=== PATIENT | male | born 1970 | race Caucasian/White ===

== ENCOUNTER 2016-11-05 22:42 | Emergency (ER) | payer SELFPAY ==
--- NOTE | 2016-11-06 00:06 | DIAGNOSTIC IMAGING REPORT ---
PROCEDURE: CT HEAD WITHOUT CONTRAST INDICATION: HEADACHE TECHNIQUE: Noncontrast axial images with sagittal and coronal reformations. COMPARISON: None. FINDINGS: Brain and ventricles are normal. No evidence of an acute process or hemorrhage. Mild to moderate chronic mucosal thickening in the ethmoid air cells with 2.5 cm chronic left maxillary sinus retention cyst. and mastoids are normal. IMPRESSION: 1. Mild to moderate chronic mucosal thickening in the ethmoid air cells with 2.5 cm chronic left maxillary sinus retention cyst. 2. Otherwise negative head CT. No evidence of intracranial abnormality. 3. Findings discussed with Dr. Gnea Arredondo at [address] scans at this facility use dose modulation, iterative reconstruction, and/or weight-based dosing when appropriate to reduce radiation dose to as low as reasonably achievable.
--- NOTE | 2016-11-06 01:55 | ED ORDER SUMMARY ---
..... Patient: TRINITY PRASAD OrderSheet [facility] VisitID: [id number] [place] [address] 46y, M Registration Date/Time: 11/05/2016 ORDER SHEET Weight: 149.6 kg (stated) Allergies: No Known Drug Allergy GENERAL ORDERS: CT Head wo Cont Urgent (23:34 11/05/[address]) (Ack 23:38 AMcQuoid ER Tech1) (23:50 RFay) MEDICATION ORDERS: Phenergan IV 25 mg (HIGH ALERT MEDICATION, NOW) (:34 11/05/[address]) (Ack 23:35 JDeElena R.N.) (23:47 HSoule) IV FLUIDS: IV NS : initial bolus 1000 mL (1000 mL/hr), then none - (NOW) (:34 11/05/[address]) (Ack 23:35 JDeElena R.N.) (23:47 HSoule) Toradol IV 30 mg (NOW) (:34 11/05/[address]) (Ack 23:35 JDeElena R.N.) (23:47 HSoule) Dilaudid IV 1 mg (HIGH ALERT MEDICATION, NOW) (00:20 11/06/[address]) (Ack 0:25 HSoule) (0:32 HSoule) Dilaudid IV 1 mg (HIGH ALERT MEDICATION, NOW) (01:18 11/06/[address]) (1:19 HSoule) ORDER SHEET NOTES: [Electronically signed by Joceline Copeland (02:11/06/2016)] [Electronically signed by Gena Arredondo MD (18:39 11/07/2016)] [Electronically locked/signed by Joceline Copeland (11/06/2016)]
--- NOTE | 2016-11-06 01:55 | ED NURSING NOTES ---
Clinical Report - Nurses [facility] [place] [address] 11/05/2016 22:41 Patient: TRINITY PRASAD TRIAGE Triage time 22:47. Acuity: LEVEL 3. Chief Complaint: HEADACHE and (Onset two hours ago, woke him up from sleep, describes as a "migraine." Ran out of BP med about 2-3 months ago.). Alert. SEPSIS SCREEN: Sepsis Screen: negative. Negative (no infection suspected/documented). --23:00 Franky Castellon R.N. 22:47 11/05/16. BP: 188/108 (large adult cuff) taken on the left arm, via an automated monitor, while sitting. HR: 89 (normal rate). RR: 18 (regular, unlabored and normal). O2 saturation: 92% on room air. Temp: 98.4 F (oral). Pain level now: 07/31. --23:00 Franky Castellon R.N. Weight: 149.6 kg stated. Height/Length: 75 inches Per Patient. BMI: 41.2. --22:48 Franky Castellon R.N. Medications None. --22:49 Franky Castellon R.N. HCTZ 40mg, daily. --22:49 Franky Castellon R.N. Lisinopril Oral 40 mg, daily. --22:49 Franky Castellon R.N. Medication/allergy information source: the patient. --23:00 Franky Castellon R.N. Allergies No Known Drug Allergy. --22:49 Franky Castellon R.N. History Arrived by private vehicle. Historian: patient. Accompanied by son. Primary physician (None). This started just prior to arrival. Reports experiencing sweating episodes. He has had dizziness. He has had a global headache (described as "someone putting head in vice."). The headache has been associated with nausea and photophobia. No numbness or weakness. No chills, fever, chest pain or difficulty breathing. He has not had fatigue. Denies muscle aches. Treatment EDUCATION ASSOCIATE: Took ibuprofen. (2 x 200 mg 2 hours ago, no relief). SOCIAL HX: Never smoker. No alcohol use or drug use. He has not traveled outside the [place] No infectious disease exposure. ABUSE ASSESSMENT: Abuse assessment: The patient was asked "Do you feel safe in your home?" and "Has anyone hurt you or threatened to hurt you?". No report of abuse. SELF HARM ASSESSMENT: A self harm assessment was performed. The patient answered "no" to the question "Do you have thoughts of harming or killing yourself?" and "Have you recently had thoughts about harming or killing others?". FALL RISK ASSESSMENT: Fall risk assessment completed. No fall risk identified. NUTRITIONAL RISK ASSESSMENT: The nutritional risk assessment revealed no deficiencies. FUNCTIONAL ASSESSMENT: Functional assessment: no impairments noted. LEARNING NEEDS ASSESSMENT: The learning needs assessment revealed no barriers. SKIN INTEGRITY ASSESSMENT: Skin integrity risk assessment completed. No skin integrity risk identified. --23:00 Franky Castellon R.N. PROBLEMS: Atypical Chest Pain. DVT - Deep Venous Thrombosis. Pulmonary Embolism. Hematuria. Back Pain. Lung Disease. Chest Pain. Hyperlipidemia. Hypertension. --22:49 Franky Castellon R.N. Gastroesophageal Reflux Disease [RuleOut]. --22:49 Franky Castellon R.N. The following entry was modified by Gena Arredondo MD, 00:28 Reason - duplicate <<STRICKEN ENTRY-- Hypercholesterolemia. --00:28 Gena Arredondo MD --END STRIKE>>. Assessment GENERAL / NEURO / PSYCH: Alert. Oriented X 4. Appears in pain. Patient appears calm and cooperative. ( Guarding face from light.). RESPIRATORY: Respirations not labored. SKIN: Skin is warm and dry. --23:00 Franky Castellon R.N. Interventions ID band on patient. To treatment room. No allergy band on patient. --23:00 Franky Castellon R.N. Report given to the primary nurse. TESSIE Cotton. --23:00 Franky Castellon R.N. NURSING PROGRESS NOTES 23:41 11/05/2016 Site #1 started via IV in the right antecubital space with an 20g angiocath, with aseptic technique and good blood return; one attempt. Blood drawn: rainbow set. Labeled in the presence of the patient and sent to the lab. Saline lock flushed with 10 mL saline. --23:46 Min Joceline 23:42 11/05/2016 Toradol IVP 30 mg given over 1 minute(s) via site #1. Allergies verified and confirmed 5 rights. IV patency established. IV site checked: no pain, redness, or swelling. IV flushed thoroughly pre- and post-medication administration. IVP given by RN. --23:47 Joceline Copeland 23:47 11/05/2016 Started bag #1 1000 mL IV Fluids IV NS (Saline); at 1000 mL/hr over 1 hour(s) via site #1. Allergies verified and confirmed 5 rights. IV patency established. IV site checked: no pain, redness, or swelling. IV flushed thoroughly pre- and post-medication administration. --23:47 Joceline Copeland 23:47 11/05/2016 PHENERGAN (Promethazine HCl) IVP 25 mg given diluted in NS 20mL over 4 minute(s) via site #1. Allergies verified and confirmed 5 rights. IV patency established. IV site checked: no pain, redness, or swelling. IV flushed thoroughly pre- and post-medication administration. IVP given by RN. --23:47 Joceline Copeland 23:47 11/05/16. BP: 145/88. HR: 90. RR: 20. O2 saturation: 93% on room air. Pain level now: 05/31. --23:48 Joceline Copeland Patient transported to [place] by stretcher with tech. --23:48 Joceline Copeland 00:27 11/06/2016 Dilaudid (HYDROmorphone HCl PF) IVP 1 mg given over 1 minute(s) via site #1. Allergies verified, confirmed 5 rights and sedative warning given to the patient. IV patency established. IV site checked: no pain, redness, or swelling. IV flushed thoroughly pre- and post-medication administration. IVP given by RN. --00:32 Joceline Copeland ( Patient given Ice pack and ice chips.). --00:36 Joceline Copeland Reassessment after medication administered. Overall patient status- he states feels the same. --00:43 Joceline Copeland ( Patient states his pain medication has only slightly improved his pain). --00:43 Joceline Copeland 01:19 11/06/2016 Dilaudid (HYDROmorphone HCl PF) IVP 1 mg given over 1 minute(s) via site #1. Allergies verified, confirmed 5 rights and sedative warning given to the patient. IV patency established. IV site checked: no pain, redness, or swelling. IV flushed thoroughly pre- and post-medication administration. IVP given by RN. --01:19 Joceline Copeland 01:11/06/2016 IV Fluids IV NS Discontinued: bag #1 completed. Total amount infused: 1000 mL. IV patency established. IV site checked: no pain, redness, or swelling. IV flushed thoroughly. --01:19 Joceline Copleand. DISPOSITION / DISCHARGE 01:11/06/16. BP: 143/81. HR: 83. RR: 20. O2 saturation: 94% on room air. Pain level now: 10. --01:12 Joceline Copeland 01:12 11/06/2016 Site #1 removed. Catheter intact. Bandaid applied. --01:59 Joceline Copeland 01:20 11/06/16. ( Teaching done with patient regarding follow up for Hypertension management. Patient states he will obtain his medications as soon as possible. Patient and RN discussed headache management.). No learning barriers present. Reviewed diet. ( Patient left prior to receiving paperwork, discharge teaching was performed during last set of vitals.). The patient was discharged by the physician. He was discharged home and accompanied by family. He left the Emergency Department ambulatory and via private vehicle. Family member driving. --01:58 Joceline Copeland. Locked/Released at 11/06/2016 2:24 by Joceline Copeland,
--- NOTE | 2016-11-06 01:55 | ED ORDER SUMMARY ---
..... Patient: TRINITY PRASAD OrderSheet [facility] VisitID: [id number] [place] [address] 46y, M Registration Date/Time: 11/05/2016 ORDER SHEET Weight: 149.6 kg (stated) Allergies: No Known Drug Allergy GENERAL ORDERS: CT Head wo Cont Urgent (23:34 11/05/[address]) (Ack 23:38 AMcQuoid ER Tech1) (23:50 RFay) MEDICATION ORDERS: Phenergan IV 25 mg (HIGH ALERT MEDICATION, NOW) (:34 11/05/[address]) (Ack 23:35 JDeElena R.N.) (23:47 HSoule) IV FLUIDS: IV NS : initial bolus 1000 mL (1000 mL/hr), then none - (NOW) (:34 11/05/[address]) (Ack 23:35 JDeElena R.N.) (23:47 HSoule) Toradol IV 30 mg (NOW) (:34 11/05/[address]) (Ack 23:35 JDeElena R.N.) (23:47 HSoule) Dilaudid IV 1 mg (HIGH ALERT MEDICATION, NOW) (00:20 11/06/[address]) (Ack 0:25 HSoule) (0:32 HSoule) Dilaudid IV 1 mg (HIGH ALERT MEDICATION, NOW) (01:18 11/06/[address]) (1:19 HSoule) ORDER SHEET NOTES: [Electronically signed by Joceline Copeland (02:11/06/2016)] [Electronically signed by Gena Arredondo MD (18:39 11/07/2016)] [Electronically locked/signed by Joceline Copeland (11/06/2016)]
--- NOTE | 2016-11-06 01:55 | ED CLINICAL REPORT ---
Clinical Report - Physicians/Mid Levels [facility] [address] [place] [address] 11/05/2016 22:41 Patient: TRINITY PRASAD Time Seen: 22:49. Arrived- By private vehicle. Historian- patient. HISTORY OF PRESENT ILLNESS Chief Complaint: HEADACHE. Is still present. This started about 2 hours ago. Onset during sleep. It is described as similar to previous headaches and "pain". Located in the region of the right eye and left eye and frontal and occipital region. No neck pain. At its maximum, severity described as moderate. When seen in the E.D., severity described as moderate. Modifying factors: worsened by bright light; relieved by nothing. The patient has had photophobia and nausea. No preceding symptoms, blurred vision, numbness, weakness or vomiting. (Pt states he has a history of this kind of GR before, but usually, it goes away with ibuprofen.). Similar symptoms previously: Occasionally, milder. Recent medical care: Not recently seen/assessed. REVIEW OF SYSTEMS No fever, muscle aches, sinus pressure, ear pain or sore throat. No head injury, chest pain, difficulty breathing, cough or abdominal pain. No diarrhea, pain with urination, skin rash, enlarged lymph nodes or back pain. All systems otherwise negative, except as recorded above. PAST HISTORY Problems: DVT - Deep Venous Thrombosis. Pulmonary Embolism. Lung Disease. Hyperlipidemia. Hypertension. Additional Surgeries: Ankle. Appendectomy. Elbows. Fracture Repair. Knee Surgery. Tonsillectomy. Umbilical Hernia Repair. Medications: Lisinopril Oral 40 mg, daily. HCTZ 40mg, daily. None. Allergies: No Known Drug Allergy. SOCIAL HISTORY Never smoker. No alcohol use or drug use. ADDITIONAL NOTES The nursing notes have been reviewed. PHYSICAL EXAM Vital Signs: 11/05/2016 22:47 BP: 188/108. HR: 89. RR: 18. O2 saturation: 92%. Temp: 98.4 F. Pain level now: 10/10. Have been reviewed. Appearance: Alert. No acute distress. (Pt is sitting in a dark room with his hands over his eyes.). Eyes: Pupils equal, round and reactive to light. Eyes normal inspection. ENT: Nose normal. Neck: Normal inspection. CVS: Normal heart rate and rhythm. Heart sounds normal. Pulses normal. Respiratory: No respiratory distress. Breath sounds normal. Abdomen: Soft and nontender. Obese. Back: Normal inspection. Skin: Skin warm and dry. Normal skin color. No rash. Normal skin turgor. Extremities: Extremities exhibit normal ROM. No lower extremity edema. Neuro: Oriented X 3. Alert. Mood/affect normal. Speech normal. Cranial nerves normal (as tested). No cerebellar findings. No motor deficit. No sensory deficit. LABS, X-RAYS, AND EKG CT Head: No acute changes. No bony abnormalities, no hemorrhage, no intracranial mass, no midline shift and no hydrocephalus. No atrophy. Head CT performed without contrast. The study was independently viewed by me, interpreted by the radiologist and contemporaneously by me and discussed with the radiologist. Prior studies were not available for comparison. Pulse Oximetry: 11/05/2016 22:47 O2 saturation: 92%. (FIO2 - room air). Interpretation: normal. PROGRESS AND PROCEDURES Course of Care: Pt was given a liter of NS, Toradol, Phenergan, and Dilaudid for his discomfort. His blood pressure did decrease throughout his stay in the ED. He was worked up with a CT brain, and this was unremarkable. PT was informed of his CT results by nursing staff, prior to my re-evaluation, and stated that he would like to leave, as his son had to work in a few hours. Nursing staff did try to persuade pt to stay so that I could speak with him (I was with another pt at the time), but pt insisted on leaving at that time. My plan was to discharge the pt home, but to re-emphasize the importance of pt getting control of his BP (need for timely follow-up with PCP). Patient counseled in person regarding the patient's stable condition, test results, diagnosis and need for follow-up. Old medical records ordered. Disposition: Discharged (Pt eloped from the ED, prior to re-evaluation by EDMD, and prior to receiving d/c papers.). Condition: stable and improved. CLINICAL IMPRESSION Acute headache. Uncontrolled hypertension. (Electronically signed by Gena Arredondo MD 11/07/2016 18:39)
--- NOTE | 2016-11-07 18:40 | ED MAR SUMMARY ---
..... Medication Administration Record [facility] [address] [place] [address] Patient: TRINITY PRASAD Visit ID: [id number] 46y, M Weight: 149.6 kg Height/Length: 75 in BMI: 41.2 ALLERGIES: No Known Drug Allergy Given 23:42 11/05/2016 Joceline Copeland, Medication Administered: TORADOL [IVP], Dose: 30 mg IVP over 1 minute(s), Site: #1 right AC. Medication Ordered: Toradol IV 30 mg (NOW). Given 23:47 11/05/2016 Joceline Copeland, Medication Administered: PHENERGAN [IVP] (PROMETHAZINE HCL), Dose: 25 mg IVP over 4 minute(s), In: NS 20 mL, Site: #1 right AC. Medication Ordered: Phenergan IV 25 mg (HIGH ALERT MEDICATION, NOW). Start 23:47 11/05/2016 Joceline Copeland,, Stop 01:11/06/2016 Joceline Copeland, Medication Administered: IV NS (SALINE), Dose: IV Fluids over 1 hour(s), Rate: 1000 mL/hr, Dispensed: 1000 mL bag, Site: #1 right AC. Medication Ordered: IV NS : initial bolus 1000 mL (1000 mL/hr), then none - (NOW). Given 00:27 11/06/2016 Joceline Copeland, Medication Administered: DILAUDID [IVP] (HYDROMORPHONE HCL PF), Dose: 1 mg IVP over 1 minute(s), Site: #1 right AC. Medication Ordered: Dilaudid IV 1 mg (HIGH ALERT MEDICATION, NOW). Given :11/06/2016 Joceline Copeland, Medication Administered: DILAUDID [IVP] (HYDROMORPHONE HCL PF), Dose: 1 mg IVP over 1 minute(s), Site: #1. Medication Ordered: Dilaudid IV 1 mg (HIGH ALERT MEDICATION, NOW).
--- NOTE | 2016-11-07 18:40 | ED DISCHARGE INSTRUCTIONS ---
Patient: TRINITY PRASAD General Instructions [facility] VisitID: [id number] [address] [place] [address] 46y, M Registration Date/Time: 11/05/2016 Acute headache. Uncontrolled hypertension. (Electronically signed by Gena Arredondo MD 11/07/2016 18:39)
--- NOTE | 2016-11-07 18:40 | ED MAR SUMMARY ---
..... Medication Administration Record [facility] [address] [place] [address] Patient: TRINITY PRASAD Visit ID: [id number] 46y, M Weight: 149.6 kg Height/Length: 75 in BMI: 41.2 ALLERGIES: No Known Drug Allergy Given 23:42 11/05/2016 Joceline Copeland, Medication Administered: TORADOL [IVP], Dose: 30 mg IVP over 1 minute(s), Site: #1 right AC. Medication Ordered: Toradol IV 30 mg (NOW). Given 23:47 11/05/2016 Joceline Copeland, Medication Administered: PHENERGAN [IVP] (PROMETHAZINE HCL), Dose: 25 mg IVP over 4 minute(s), In: NS 20 mL, Site: #1 right AC. Medication Ordered: Phenergan IV 25 mg (HIGH ALERT MEDICATION, NOW). Start 23:47 11/05/2016 Joceline Copeland,, Stop 01:11/06/2016 Joceline Copeland, Medication Administered: IV NS (SALINE), Dose: IV Fluids over 1 hour(s), Rate: 1000 mL/hr, Dispensed: 1000 mL bag, Site: #1 right AC. Medication Ordered: IV NS : initial bolus 1000 mL (1000 mL/hr), then none - (NOW). Given 00:27 11/06/2016 Joceline Copeland, Medication Administered: DILAUDID [IVP] (HYDROMORPHONE HCL PF), Dose: 1 mg IVP over 1 minute(s), Site: #1 right AC. Medication Ordered: Dilaudid IV 1 mg (HIGH ALERT MEDICATION, NOW). Given :11/06/2016 Joceline Copeland, Medication Administered: DILAUDID [IVP] (HYDROMORPHONE HCL PF), Dose: 1 mg IVP over 1 minute(s), Site: #1. Medication Ordered: Dilaudid IV 1 mg (HIGH ALERT MEDICATION, NOW).
--- NOTE | 2016-11-07 18:40 | ED MED RECONCILIATION SUMMARY ---
Patient: TRINITY PRASAD Medication Reconciliation Report [facility] VisitID: [id number] [address] [place] [address] 46y, M Registration Date/Time: 11/05/2016 Weight: 149.6 kg Height/Length: 75 in. BMI: 41.2 ALLERGIES: No Known Drug Allergy The patient's Home Medications are listed below: THE FOLLOWING MEDICATIONS NEED TO BE RECONCILED: HCTZ 40mg, daily Lisinopril Oral 40 mg, daily The source(s) of the original Home Medication information: patient The following Medications were given to the patient in the Emergency Department: IV NS IV Fluids bolus 0, then 1000 mL/hr, administered: 11/05/2016 11:47:00 PM Toradol [IVP] IVP 30 mg, administered: 11/05/2016 11:42:00 PM PHENERGAN [IVP] IVP 25 mg diluted in NS 20 mL, administered: 11/05/2016 11:47:00 PM Dilaudid [IVP] IVP 1 mg, administered: 11/06/2016 12:27:00 AM Dilaudid [IVP] IVP 1 mg, administered: 11/06/2016 1:19:00 AM The following Medications were prescribed to the patient: None.
--- NOTE | 2016-11-07 18:40 | ED DISCHARGE INSTRUCTIONS ---
Patient: TRINITY PRASAD General Instructions [facility] VisitID: [id number] [address] [place] [address] 46y, M Registration Date/Time: 11/05/2016 Acute headache. Uncontrolled hypertension. (Electronically signed by Gena Arredondo MD 11/07/2016 18:39)
--- NOTE | 2016-11-07 18:40 | ED MED RECONCILIATION SUMMARY ---
Patient: TRINITY PRASAD Medication Reconciliation Report [facility] VisitID: [id number] [address] [place] [address] 46y, M Registration Date/Time: 11/05/2016 Weight: 149.6 kg Height/Length: 75 in. BMI: 41.2 ALLERGIES: No Known Drug Allergy The patient's Home Medications are listed below: THE FOLLOWING MEDICATIONS NEED TO BE RECONCILED: HCTZ 40mg, daily Lisinopril Oral 40 mg, daily The source(s) of the original Home Medication information: patient The following Medications were given to the patient in the Emergency Department: IV NS IV Fluids bolus 0, then 1000 mL/hr, administered: 11/05/2016 11:47:00 PM Toradol [IVP] IVP 30 mg, administered: 11/05/2016 11:42:00 PM PHENERGAN [IVP] IVP 25 mg diluted in NS 20 mL, administered: 11/05/2016 11:47:00 PM Dilaudid [IVP] IVP 1 mg, administered: 11/06/2016 12:27:00 AM Dilaudid [IVP] IVP 1 mg, administered: 11/06/2016 1:19:00 AM The following Medications were prescribed to the patient: None.
== END 2016-11-06 01:20 | disposition home or self-care (01) ==
LOC: ED SRH 22:42
DX: R51 Headache (principal); I10 Essential (primary) hypertension; E78.5 Hyperlipidemia, unspecified; Z86.711 Personal history of pulmonary embolism; Z86.718 Personal history of other venous thrombosis and embolism

== ENCOUNTER 2017-04-09 18:27 | Emergency (ER) | payer OTHER ==
--- NOTE | 2017-04-09 19:18 | ED NURSING NOTES ---
Clinical Report - Nurses [facility] [place] [address] 04/09/2017 18:27 Patient: TRINITY PRASAD TRIAGE Triage time 18:40. Acuity: LEVEL 3. Chief Complaint: RIGHT LOWER EXTREMITY PAIN and SWELLING. --18:48 Van Herrera R.N. 18:40 04/09/17. BP: 130/87. HR: 91. RR: 16. O2 saturation: 100%. Temp: 98.6 F. Pain level now: 07/31. --18:48 Van Herrera R.N. Weight: 138.3 kg. Height/Length: 73 inches. BMI: 40.2. --18:45 Van Herrera R.N. Medications HCTZ 40mg, daily. --18:44 Van Herrera R.N. Lisinopril Oral 40 mg, daily. None. --18:44 Van Herrera R.N. ASA Oral. --18:46 Van Herrera R.N. Amlodipine Besy-Benazepril HCl Oral. --18:47 Van Herrera R.N. Medication/allergy information source: the patient. --18:48 Van Herrera R.N. Allergies No Known Drug Allergy. --18:44 Van Herrera R.N. History Arrived by private vehicle. Historian: patient. Accompanied by spouse. ( Right calf pain and increasing swelling in the last 2 days, history of DVT on the same leg 6 years ago.). This occurred (2 days ago). Provoking / relieving factors: worsened by movement, standing and walking. He has had swelling and moderate trouble walking. The patient has been limping when trying to walk. PAST MEDICAL HX: Hypertension. Deep vein thrombosis (6 years ago). SURGERY HX: ( right torn meniscus; patellar tendon repair). SOCIAL HX: Former smoker, end date 2006. Occasional alcohol use; consumes beer occasionally. --18:48 Van Herrera R.N. PHYSICAL ASSESSMENT Ambulatory to room. GENERAL / NEURO / PSYCH: Oriented X 4. Alert. Appears in no acute distress. Appears in pain. EXTREMITIES: Limited ROM present. Extremity pulses are within normal limits. Extremities exhibit normal ROM. Neuro-vascular status intact to the extremity. Right leg: tenderness and swelling. Limited weight bearing secondary to pain. Right ankle: tenderness and swelling. Limited ROM secondary to pain (diminished plantar flexion, dorsiflexion, inversion and eversion). SKIN: Skin intact. Skin is warm and dry. --18:49 Van Herrera R.N. NURSING PROGRESS NOTES Cold pack applied. Extremity elevated. Neuro-vascular extremity check. Patient identifiers checked. Call light placed in reach. Bed placed in lowest position. Brakes of bed on. Patient ready for evaluation- chart flagged and WET END TESTER notified. --18:50 Van Herrera R.N. DISPOSITION / DISCHARGE 19:44 04/09/17. Departure time: 19:44 Apr 09 2017. No learning barriers present. Discharge instructions provided and reviewed with the patient. Patient verbalized understanding. The patient was discharged by the physician social media assistant. He was discharged home and accompanied by spouse. He left the Emergency Department ambulatory and via private vehicle. Spouse driving. --19:44 Kierra Carr R.N. 19:43 04/09/17. BP: 142/95 (regular adult cuff) taken on the right arm, while sitting. HR: 84. RR: 18. O2 saturation: 100% on room air. Temp: 97.7 F (oral). Pain level now: 07/31. --19:44 Kierra Carr R.N. Locked/Released at 04/20/2017 2:49 by Kierra Carr R.N.
--- NOTE | 2017-04-09 19:18 | ED ORDER SUMMARY ---
..... Patient: TRINITY PRASAD OrderSheet [facility] VisitID: [id number] [address] [place] [address] 46y, M Registration Date/Time: 04/09/2017 ORDER SHEET Weight: 138.3 kg Allergies: No Known Drug Allergy GENERAL ORDERS: US Venous Right Urgent (18:47 04/09/2017 Kari Salinas) (Ack 18:53 [facility] Tech1) (19:36 Marilin Corona) MEDICATION ORDERS: IV FLUIDS: ORDER SHEET NOTES: [Electronically signed by Michelle Vann P.A.-C (20:09 04/09/2017)] [Electronically signed by Kierra Carr R.N. (02:49 04/20/2017)] [Electronically locked/signed by Kierra Carr R.N. (02:49 04/20/2017)]
--- NOTE | 2017-04-09 19:18 | ED CLINICAL REPORT ---
Clinical Report - Physicians/Mid Levels [facility] [address] [place] [address] 04/09/2017 18:27 Patient: TRINITY PRASAD Time Seen: 2016. Arrived- By private vehicle. Historian- patient. HISTORY OF PRESENT ILLNESS Chief Complaint: Chief Complaint- r. knee pain/ swelling. The injury happened just prior to arrival. The patient sustained a direct blow. (patient is status post right knee meniscus repair about 2 months previously, now with right lower extremity pain and swelling to the right lower extremity. Patient denies any new injury. Patient with history of DVT, status post a previous knee surgery about 46 years previously. Patient was taken Lovenox after his surgery, takes a baby aspirin daily for his heart medications. Denies new fall or injury. Denies fevers chills. Denies any shortness of breath. Denies history of PE. Patient is unsure if he has any genetic disposition for hypercoagulability.). REVIEW OF SYSTEMS The patient complains of pain on weight bearing. All systems otherwise negative, except as recorded above. SOCIAL HISTORY Former smoker. Alcohol use. PHYSICAL EXAM Vital Signs: 04/09/2017 18:40 BP: 130/87. HR: 91. RR: 16. O2 saturation: 100%. Temp: 98.6 F. Pain level now: 10/10. Appearance: Alert. No acute distress. Head: Head atraumatic. CVS: Normal heart rate and rhythm. Heart sounds normal. Respiratory: No respiratory distress. Breath sounds normal. Skin: Skin warm. Normal skin color. Extremities: Right thigh. Right knee. (posterior swelling) No tenderness, swelling, laceration, puncture wound or deformity. Right leg: tenderness and swelling located in the posterior aspect of upper and mid leg. No puncture wound or foreign body. (incision c/d/i. pain with flexion, mild calf swelling, good distal doralis pedal pulse, and sensastion, full rom at ankle.). Gait: Limping gait. Neuro, Vascular and Tendons: Vascular status intact. Motor intact. No functional tendon deficit. Neuro: Oriented X 3. LABS, X-RAYS, AND EKG Note - Tests: (US VENOUS: IMPRESSION: 1. No evidence of a right lower extremity DVT 2. Right popliteal cyst. Electronically Final signed by:Ayden Lundberg MD 04/09/2017 7:28:49 PM). PROGRESS AND PROCEDURES Course of Care: there is no evidence of acute DVT, no signs of erythema or warmth, no signs of infectious process. Patient with ultrasound with signs of Allen's cyst, patient informed to follow-up with his orthopedic surgeon for this. Good distal pulses. Patient stable. 04/09/2017 19:43 BP: 142/95. HR: 84. RR: 18. O2 saturation: 100%. Temp: 97.7 F. Pain level now: 1010. Patient is stable. The patient's symptoms are unchanged. Patient/family counseled. Disposition: Discharged. Condition: good. CLINICAL IMPRESSION Intact Allen's cyst; right knee. INSTRUCTIONS Elevate affected areas above chest level. (FOLLOW UP WITH YOUR ORTHO in the next 5-7 days). OTC Medications: Take OTC medications according to label instructions. Available over the counter. Acetaminophen (available over the counter): take according to label instructions. Motrin (available over the counter): take according to label instructions. [facility]-up with: [facility], , [address], , [place], [address] Follow up. Call for the next available appointment. (Electronically signed by Michelle Vann P.A.-C 04/09/2017 20:09)
--- NOTE | 2017-04-09 19:18 | ED CLINICAL REPORT ---
Clinical Report - Physicians/Mid Levels [facility] [address] [place] [address] 04/09/2017 18:27 Patient: TRINITY PRASAD Time Seen: 2016. Arrived- By private vehicle. Historian- patient. HISTORY OF PRESENT ILLNESS Chief Complaint: Chief Complaint- r. knee pain/ swelling. The injury happened just prior to arrival. The patient sustained a direct blow. (patient is status post right knee meniscus repair about 2 months previously, now with right lower extremity pain and swelling to the right lower extremity. Patient denies any new injury. Patient with history of DVT, status post a previous knee surgery about 46 years previously. Patient was taken Lovenox after his surgery, takes a baby aspirin daily for his heart medications. Denies new fall or injury. Denies fevers chills. Denies any shortness of breath. Denies history of PE. Patient is unsure if he has any genetic disposition for hypercoagulability.). REVIEW OF SYSTEMS The patient complains of pain on weight bearing. All systems otherwise negative, except as recorded above. SOCIAL HISTORY Former smoker. Alcohol use. PHYSICAL EXAM Vital Signs: 04/09/2017 18:40 BP: 130/87. HR: 91. RR: 16. O2 saturation: 100%. Temp: 98.6 F. Pain level now: 10/10. Appearance: Alert. No acute distress. Head: Head atraumatic. CVS: Normal heart rate and rhythm. Heart sounds normal. Respiratory: No respiratory distress. Breath sounds normal. Skin: Skin warm. Normal skin color. Extremities: Right thigh. Right knee. (posterior swelling) No tenderness, swelling, laceration, puncture wound or deformity. Right leg: tenderness and swelling located in the posterior aspect of upper and mid leg. No puncture wound or foreign body. (incision c/d/i. pain with flexion, mild calf swelling, good distal doralis pedal pulse, and sensastion, full rom at ankle.). Gait: Limping gait. Neuro, Vascular and Tendons: Vascular status intact. Motor intact. No functional tendon deficit. Neuro: Oriented X 3. LABS, X-RAYS, AND EKG Note - Tests: (US VENOUS: IMPRESSION: 1. No evidence of a right lower extremity DVT 2. Right popliteal cyst. Electronically Final signed by:Ayden Lundberg MD 04/09/2017 7:28:49 PM). PROGRESS AND PROCEDURES Course of Care: there is no evidence of acute DVT, no signs of erythema or warmth, no signs of infectious process. Patient with ultrasound with signs of Allen's cyst, patient informed to follow-up with his orthopedic surgeon for this. Good distal pulses. Patient stable. 04/09/2017 19:43 BP: 142/95. HR: 84. RR: 18. O2 saturation: 100%. Temp: 97.7 F. Pain level now: 1010. Patient is stable. The patient's symptoms are unchanged. Patient/family counseled. Disposition: Discharged. Condition: good. CLINICAL IMPRESSION Intact Allen's cyst; right knee. INSTRUCTIONS Elevate affected areas above chest level. (FOLLOW UP WITH YOUR ORTHO in the next 5-7 days). OTC Medications: Take OTC medications according to label instructions. Available over the counter. Acetaminophen (available over the counter): take according to label instructions. Motrin (available over the counter): take according to label instructions. Follow-up with: [facility], , [address], , [place], [address] Follow up. Call for the next available appointment. (Electronically signed by Michelle Vann P.A.-C 04/09/2017 20:09)
--- NOTE | 2017-04-09 19:18 | ED ORDER SUMMARY ---
..... Patient: TRINITY PRASAD OrderSheet [facility] VisitID: [id number] [address] [place] [address] 46y, M Registration Date/Time: 04/09/2017 ORDER SHEET Weight: 138.3 kg Allergies: No Known Drug Allergy GENERAL ORDERS: US Venous Right Urgent (18:47 04/09/2017 Kari Salinas) (Ack 18:53 [facility] Tech1) (19:36 Marilin Corona) MEDICATION ORDERS: IV FLUIDS: ORDER SHEET NOTES: [Electronically signed by Michelle Vann P.A.-C (20:09 04/09/2017)] [Electronically signed by Kierra Carr R.N. (02:49 04/20/2017)] [Electronically locked/signed by Kierra Carr R.N. (02:49 04/20/2017)]
--- NOTE | 2017-04-09 19:18 | ED NURSING NOTES ---
Clinical Report - Nurses [facility] [place] [address] 04/09/2017 18:27 Patient: TRINITY PRASAD TRIAGE Triage time 18:40. Acuity: LEVEL 3. Chief Complaint: RIGHT LOWER EXTREMITY PAIN and SWELLING. --18:48 Van Herrera R.N. 18:40 04/09/17. BP: 130/87. HR: 91. RR: 16. O2 saturation: 100%. Temp: 98.6 F. Pain level now: 07/31. --18:48 Van Herrera R.N. Weight: 138.3 kg. Height/Length: 73 inches. BMI: 40.2. --18:45 Van Herrera R.N. Medications HCTZ 40mg, daily. --18:44 Van Herrera R.N. Lisinopril Oral 40 mg, daily. None. --18:44 Van Herrera R.N. ASA Oral. --18:46 Van Herrera R.N. Amlodipine Besy-Benazepril HCl Oral. --18:47 Van Herrera R.N. Medication/allergy information source: the patient. --18:48 Van Herrera R.N. Allergies No Known Drug Allergy. --18:44 Van Herrera R.N. History Arrived by private vehicle. Historian: patient. Accompanied by spouse. ( Right calf pain and increasing swelling in the last 2 days, history of DVT on the same leg 6 years ago.). This occurred (2 days ago). Provoking / relieving factors: worsened by movement, standing and walking. He has had swelling and moderate trouble walking. The patient has been limping when trying to walk. PAST MEDICAL HX: Hypertension. Deep vein thrombosis (6 years ago). SURGERY HX: ( right torn meniscus; patellar tendon repair). SOCIAL HX: Former smoker, end date 2006. Occasional alcohol use; consumes beer occasionally. --18:48 Van Herrera R.N. PHYSICAL ASSESSMENT Ambulatory to room. GENERAL / NEURO / PSYCH: Oriented X 4. Alert. Appears in no acute distress. Appears in pain. EXTREMITIES: Limited ROM present. Extremity pulses are within normal limits. Extremities exhibit normal ROM. Neuro-vascular status intact to the extremity. Right leg: tenderness and swelling. Limited weight bearing secondary to pain. Right ankle: tenderness and swelling. Limited ROM secondary to pain (diminished plantar flexion, dorsiflexion, inversion and eversion). SKIN: Skin intact. Skin is warm and dry. --18:49 Van Herrera R.N. NURSING PROGRESS NOTES Cold pack applied. Extremity elevated. Neuro-vascular extremity check. Patient identifiers checked. Call light placed in reach. Bed placed in lowest position. Brakes of bed on. Patient ready for evaluation- chart flagged and VICE PRESIDENT OF SALES notified. --18:50 Van Herrera R.N. DISPOSITION / DISCHARGE 19:44 04/09/17. Departure time: 19:44 Apr 09 2017. No learning barriers present. Discharge instructions provided and reviewed with the patient. Patient verbalized understanding. The patient was discharged by the physician special ed assistant. He was discharged home and accompanied by spouse. He left the Emergency Department ambulatory and via private vehicle. Spouse driving. --19:44 Kierra Carr R.N. 19:43 04/09/17. BP: 142/95 (regular adult cuff) taken on the right arm, while sitting. HR: 84. RR: 18. O2 saturation: 100% on room air. Temp: 97.7 F (oral). Pain level now: 07/31. --19:44 Kierra Carr R.N. Locked/Released at 04/20/2017 2:49 by Kierra Carr R.N.
--- NOTE | 2017-04-09 19:29 | DIAGNOSTIC IMAGING REPORT ---
PROCEDURE: US VENOUS - RIGHT EXT INDICATION: SWELLING TECHNIQUE: Duplex sonography of the deep venous system in the right lower extremity was performed. Compression and augmentation techniques were used. COMPARISON: None. FINDINGS: Normal compression of the greater saphenous, common femoral, superficial femoral, popliteal, peroneal, and posterior tibial veins. Normal augmentation. There is no evidence of superficial or deep venous thrombosis. 5.8 x 3.8 x 1.4 cm popliteal cyst. IMPRESSION: 1. No evidence of a right lower extremity DVT 2. Right popliteal cyst.
--- NOTE | 2017-04-20 02:50 | ED MED RECONCILIATION SUMMARY ---
Patient: TRINITY PRASAD Medication Reconciliation Report [facility] VisitID: [id number] [address] [place] [address] 46y, M Registration Date/Time: 04/09/2017 Weight: 138.3 kg Height/Length: 73 in. BMI: 40.2 ALLERGIES: No Known Drug Allergy The patient's Home Medications are listed below: THE FOLLOWING MEDICATIONS NEED TO BE RECONCILED: Amlodipine Besy-Benazepril HCl Oral ASA Oral HCTZ 40mg, daily Lisinopril Oral 40 mg, daily The source(s) of the original Home Medication information: patient The following Medications were given to the patient in the Emergency Department: None. The following Medications were prescribed to the patient: Take OTC medications according to label instructions. Available over the counter. -- Michelle Vann, P.A.-C Acetaminophen (available over the counter): take according to label instructions. -- Michelle Vann, P.A.-C Motrin (available over the counter): take according to label instructions. -- Michelle Vann, P.A.-C
--- NOTE | 2017-04-20 02:50 | ED MAR SUMMARY ---
..... Medication Administration Record [facility] [address] [place], [place] [id number] Patient: TRINITY PRASAD Visit ID: [id number] 46y, M Weight: 138.3 kg Height/Length: 73 in BMI: 40.2 ALLERGIES: No Known Drug Allergy
--- NOTE | 2017-04-20 02:50 | ED DISCHARGE INSTRUCTIONS ---
Patient: TRINITY PRASAD General Instructions [facility] VisitID: [id number] [address] [place] [address] 46y, M Registration Date/Time: 04/09/2017 Intact Allen's cyst; right knee. INSTRUCTIONS Elevate affected areas above chest level. (FOLLOW UP WITH YOUR ORTHO in the next 5-7 days). OTC Medications: Take OTC medications according to label instructions. Available over the counter. Acetaminophen (available over the counter): take according to label instructions. Motrin (available over the counter): take according to label instructions. Follow-up with: [facility], , [address], [place], [address] Follow up. Call for the next available appointment. ADDITIONAL INFORMATION BakerS Cyst The knee joint is surrounded by a capsule filled with lubricating fluid called synovial fluid. This capsule connects to a small pouch behind the knee, called a bursa. Irritation inside the joint from arthritis or a torn cartilage causes excess synovial fluid to form. This builds pressure inside the joint and the extra fluid flows into the bursa behind the knee. This creates a bulge in the back of your knee. This bulge is called a Bakers cyst. A small Bakers cyst usually causes no symptoms. A larger cyst can cause knee pain or a feeling of pressure behind the knee when you try to fully straighten or bend that joint. A Bakers cyst can leak, causing the fluid to move between the tissues of the lower leg. This results in swelling, pain and redness. Treatment of a Bakers cyst involves removal of the excess fluid and injection of a cortisone-type medicine. If excess fluid is a result of a torn cartilage, an operation to repair the cartilage may be the best treatment option. If arthritis is the cause of the excess fluid, and it does not respond to medical treatment, the cyst can be surgically removed. Home Care If you are having knee pain, stay off the affected leg as much as possible until symptoms improve. Make an ice pack (ice cubes in a plastic bag, wrapped in a towel) and apply to the painful area for 20 minutes every 1-2 hours the first day. You may continue to use ice packs 3-4 times a day for the next few days. You may use acetaminophen (Tylenol) or ibuprofen (Motrin, Advil) to control pain, unless another medicine was prescribed. [NOTE: If you have chronic liver or kidney disease or ever had a stomach ulcer or GI bleeding, talk with your doctor before using these medicines.] If crutches or a walker have been recommended, do not bear full weight on the injured leg until you can do so without pain. Check with your doctor before returning to sports or full work duties. If you were given a Velcro knee brace, you may open the brace to apply ice. Unless told otherwise, you may remove the brace to bathe and sleep. Follow Up with your doctor within 1-2 weeks or as advised by our staff. [NOTE: If x-rays were taken, they will be reviewed by a radiologist. You will be notified of any new findings that may affect your care.] Return Promptly or contact your doctor if any of the following occur: Toes or foot becomes swollen, cold, blue, numb or tingly Pain or swelling increases Warmth or redness appears over the knee Redness, swelling or pain in the calf or lower leg You have been given the following additional information: Allen's Cyst (Electronically signed by Michelle Vann P.A.-C 04/09/2017 20:09)
--- NOTE | 2017-04-20 02:50 | ED MED RECONCILIATION SUMMARY ---
Patient: TRINITY PRASAD Medication Reconciliation Report [facility] VisitID: [id number] [address] [place] [address] 46y, M Registration Date/Time: 04/09/2017 Weight: 138.3 kg Height/Length: 73 in. BMI: 40.2 ALLERGIES: No Known Drug Allergy The patient's Home Medications are listed below: THE FOLLOWING MEDICATIONS NEED TO BE RECONCILED: Amlodipine Besy-Benazepril HCl Oral ASA Oral HCTZ 40mg, daily Lisinopril Oral 40 mg, daily The source(s) of the original Home Medication information: patient The following Medications were given to the patient in the Emergency Department: None. The following Medications were prescribed to the patient: Take OTC medications according to label instructions. Available over the counter. -- Michelle Vann, P.A.-C Acetaminophen (available over the counter): take according to label instructions. -- Michelle Vann, P.A.-C Motrin (available over the counter): take according to label instructions. -- Michelle Vann, P.A.-C
--- NOTE | 2017-04-20 02:50 | ED MAR SUMMARY ---
..... Medication Administration Record [facility] [address] [place], [place] [id number] Patient: TRINITY PRASAD Visit ID: [id number] 46y, M Weight: 138.3 kg Height/Length: 73 in BMI: 40.2 ALLERGIES: No Known Drug Allergy
--- NOTE | 2017-04-20 02:50 | ED DISCHARGE INSTRUCTIONS ---
Patient: TRINITY PRASAD General Instructions [facility] VisitID: [id number] [address] [place] [address] 46y, M Registration Date/Time: 04/09/2017 Intact Allen's cyst; right knee. INSTRUCTIONS Elevate affected areas above chest level. (FOLLOW UP WITH YOUR ORTHO in the next 5-7 days). OTC Medications: Take OTC medications according to label instructions. Available over the counter. Acetaminophen (available over the counter): take according to label instructions. Motrin (available over the counter): take according to label instructions. Follow-up with: [facility], , [address], [place], [address] Follow up. Call for the next available appointment. ADDITIONAL INFORMATION BakerS Cyst The knee joint is surrounded by a capsule filled with lubricating fluid called synovial fluid. This capsule connects to a small pouch behind the knee, called a bursa. Irritation inside the joint from arthritis or a torn cartilage causes excess synovial fluid to form. This builds pressure inside the joint and the extra fluid flows into the bursa behind the knee. This creates a bulge in the back of your knee. This bulge is called a Bakers cyst. A small Bakers cyst usually causes no symptoms. A larger cyst can cause knee pain or a feeling of pressure behind the knee when you try to fully straighten or bend that joint. A Bakers cyst can leak, causing the fluid to move between the tissues of the lower leg. This results in swelling, pain and redness. Treatment of a Bakers cyst involves removal of the excess fluid and injection of a cortisone-type medicine. If excess fluid is a result of a torn cartilage, an operation to repair the cartilage may be the best treatment option. If arthritis is the cause of the excess fluid, and it does not respond to medical treatment, the cyst can be surgically removed. Home Care If you are having knee pain, stay off the affected leg as much as possible until symptoms improve. Make an ice pack (ice cubes in a plastic bag, wrapped in a towel) and apply to the painful area for 20 minutes every 1-2 hours the first day. You may continue to use ice packs 3-4 times a day for the next few days. You may use acetaminophen (Tylenol) or ibuprofen (Motrin, Advil) to control pain, unless another medicine was prescribed. [NOTE: If you have chronic liver or kidney disease or ever had a stomach ulcer or GI bleeding, talk with your doctor before using these medicines.] If crutches or a walker have been recommended, do not bear full weight on the injured leg until you can do so without pain. Check with your doctor before returning to sports or full work duties. If you were given a Velcro knee brace, you may open the brace to apply ice. Unless told otherwise, you may remove the brace to bathe and sleep. Follow Up with your doctor within 1-2 weeks or as advised by our staff. [NOTE: If x-rays were taken, they will be reviewed by a radiologist. You will be notified of any new findings that may affect your care.] Return Promptly or contact your doctor if any of the following occur: Toes or foot becomes swollen, cold, blue, numb or tingly Pain or swelling increases Warmth or redness appears over the knee Redness, swelling or pain in the calf or lower leg You have been given the following additional information: Allen's Cyst (Electronically signed by Michelle Vann P.A.-C 04/09/2017 20:09)
== END 2017-04-09 19:44 | disposition home or self-care (01) ==
LOC: ED SRH 18:27
DX: M71.21 Synovial cyst of popliteal space [Baker], right knee (principal); X58.XXXA Exposure to other specified factors, initial encounter; Y93.9 Activity, unspecified; Y92.9 Unspecified place or not applicable; Y99.9 Unspecified external cause status; I10 Essential (primary) hypertension; Z79.899 Other long term (current) drug therapy